=== PATIENT | female | born 1990 | race Caucasian/White ===

== ENCOUNTER 2017-11-11 08:23 | Inpatient (IN) | payer MEDICAID ==
[2017-11-11] MEDS ORDERED: OXYTOCIN 30 UNITS/LR 500 ML IV ×2 (09:30→22:30)
[2017-11-11] MEDS ORDERED: MISOPROSTOL 200 MCG TAB PR ×2 (09:30→22:30)
[2017-11-11] MEDS ORDERED: METHYLERGONOVINE 0.2 MG INJ IM ×2 (09:30→22:30)
[2017-11-11] MEDS ORDERED: CARBOPROST 250 MCG INJ IM ×2 (09:30→22:30)
[2017-11-11] MEDS ORDERED: CEFAZOLIN 2 GM/50 ML (PMX) 50 ML IV (09:30)
[2017-11-11 09:36] LABS: ADD MAN DIFF? NO
[2017-11-11 09:38] LABS: WHITE BLOOD COUNT 12.4 10^3/ul (4.8-10.8)
[2017-11-11 09:38] LABS: BASOPHIL # 0.1 10^3/ul (0.0-0.1); BASOPHILS % 0.5 % (0.0-2.0); EOSINOPHILS # 0.1 10^3/ul (0.0-0.5); EOSINOPHILS % 0.8 % (0.0-7.0); HEMOGLOBIN 12.5 g/dl (12.0-16.0); LYMPHOCYTES # 3.8 10^3/ul (0.8-2.9); LYMPHOCYTES % 30.8 % (15.0-51.0); MEAN CORPUSCULAR HEMOGLOBIN 28.7 pg (29.0-33.0); MEAN CORPUSCULAR HGB CONC 32.9 g/dl (32.0-37.0); MEAN CORPUSCULAR VOLUME 87.4 fl (82.0-101.0); MEAN PLATELET VOLUME 10.4 fl (7.4-10.4); MONOCYTE # 1.1 10^3/ul (0.3-0.9); NEUTROPHIL # 6.8 10^3/ul (1.6-7.5); NEUTROPHILS % 54.9 % (39.0-77.0); PLATELET COUNT 264 10^3/UL (140-415); RED BLOOD COUNT 4.35 10^6/ul (4.20-5.40); RED CELL DISTRIBUTION WIDTH 15.8 % (11.5-14.5)
[2017-11-11] MEDS: LACTATED RINGER'S 1,000 ML IV ×2 (10:05→22:11)
[2017-11-11 10:10] LABS: INR 0.97; PARTIAL THROMBOPLASTIN TIME 27.3 Sec (25.0-35.0)
[2017-11-11] MEDS: ONDANSETRON 4 MG INJ IV (15:17)
[2017-11-11] MEDS: CITRIC ACID/SODIUM CITRATE 15 ML CUP PO (15:18)
[2017-11-11] MEDS ORDERED: OXYTOCIN 10 UNIT INJ (15:45)
[2017-11-11] MEDS ORDERED: FENTAnyl 50 MCG/ML VIAL (15:45)
[2017-11-11] MEDS ORDERED: BUPIVACAINE 0.75%/DEXT (SPINAL) 2 ML INJ (15:45)
[2017-11-11] MEDS ORDERED: METOCLOPRAMIDE 10 MG INJ (15:45)
[2017-11-11] MEDS ORDERED: morphine SULFATE/PF (10 MG/10 ML) INJ (15:45)
[2017-11-11] MEDS ORDERED: PHENYLephrine (100 MCG/ML) 5ML SYG (15:45)
[2017-11-11] MEDS: OXYTOCIN 30 UNITS/LR 500 ML IV ×2 (17:00→20:42)
[2017-11-11] MEDS: KETOROLAC 30 MG INJ IV (20:39)
[2017-11-11] MEDS ORDERED: NALBUPHINE HCL (10 MG/1 ML) INJ IV (22:00)
[2017-11-11] MEDS ORDERED: TRIMETHOBENZAMIDE 100 MG/ML VIAL IM (22:00)
[2017-11-11] MEDS ORDERED: ONDANSETRON 4 MG INJ IV (22:00)
[2017-11-11] MEDS ORDERED: NALOXONE (0.4 MG/ML) INJ IV (22:00)
[2017-11-11] MEDS ORDERED: DIPHENHYDRAMINE 50 MG INJ IV (22:00)
[2017-11-11] MEDS ORDERED: morphine 2 MG INJ IV (22:00)
[2017-11-11] MEDS ORDERED: NACL 0.9% 3 ML SYG IV (22:30)
[2017-11-11] MEDS ORDERED: NA PHOSPHATE/BIPHOS 133 ML ENEMA PR (22:30)
[2017-11-11 22:37] LABS: RAPID PLASMA REAGIN NONREACTIVE (NR)
[2017-11-12] MEDS: OXYTOCIN 30 UNITS/LR 500 ML IV (01:10)
[2017-11-12] MEDS: morphine 2 MG INJ IV (01:14)
[2017-11-12] MEDS: LACTATED RINGER'S 1,000 ML IV ×2 (06:11→12:32)
[2017-11-12 09:08] LABS: ADD MAN DIFF? NO
[2017-11-12 09:12] LABS: WHITE BLOOD COUNT 10.5 10^3/ul (4.8-10.8)
[2017-11-12 09:12] LABS: BASOPHILS % 0.3 % (0.0-2.0); EOSINOPHILS % 0.4 % (0.0-7.0); HEMATOCRIT 26.9 % (37.0-47.0); HEMOGLOBIN 8.9 g/dl (12.0-16.0); LYMPHOCYTES # 2.3 10^3/ul (0.8-2.9); LYMPHOCYTES % 22.1 % (15.0-51.0); MEAN CORPUSCULAR HEMOGLOBIN 29.6 pg (29.0-33.0); MEAN CORPUSCULAR HGB CONC 33.1 g/dl (32.0-37.0); MEAN CORPUSCULAR VOLUME 89.4 fl (82.0-101.0); MEAN PLATELET VOLUME 10.5 fl (7.4-10.4); MONOCYTE # 0.8 10^3/ul (0.3-0.9); MONOCYTES % 7.2 % (0.0-11.0); NEUTROPHIL # 7.2 10^3/ul (1.6-7.5); NEUTROPHILS % 68.7 % (39.0-77.0); PLATELET COUNT 178 10^3/UL (140-415); RED BLOOD COUNT 3.01 10^6/ul (4.20-5.40)
[2017-11-12] MEDS: FOLIC ACID 1 MG TAB PO (09:12)
[2017-11-12] MEDS: KETOROLAC 30 MG INJ IV (12:41)
[2017-11-12] MEDS: HYDROCODONE/APAP (5/325) TAB PO (16:23)
[2017-11-12] MEDS: IBUPROFEN 800 MG TAB PO (21:24)
[2017-11-13] MEDS: LANOLIN 7 GM TUBE TOP (03:19)
[2017-11-13] MEDS: HYDROCODONE/APAP (5/325) TAB PO ×2 (03:19→16:39)
[2017-11-13] MEDS: IBUPROFEN 800 MG TAB PO ×3 (05:37→22:33)
[2017-11-13] MEDS: FOLIC ACID 1 MG TAB PO (08:57)
[2017-11-14] MEDS: IBUPROFEN 800 MG TAB PO ×2 (06:23→13:44)
[2017-11-14] MEDS: HYDROCODONE/APAP (5/325) TAB PO (08:02)
[2017-11-14] MEDS: MEASLES,MUMPS,RUBELLA VACCINE INJ SC* (09:04)
[2017-11-14] MEDS: DIPHTH/TET/ACEL PERTUSS (ADULT) 0.5 ML VIAL IM* (09:04)
[2017-11-14] MEDS: FOLIC ACID 1 MG TAB PO (09:05)
== END 2017-11-14 16:30 | disposition home or self-care (01) | DRG 766 ==
LOC: L-D 08:23 → PP1 21:14
PROVIDERS: Obstetrics & Gynecology
PROC: 10D00Z1 Extraction of Products of Conception, Low, Open Approach (ICD-10-PCS; principal; 2017-11-11 15:30)
DX: O34.211 Maternal care for low transverse scar from previous cesarean delivery (principal); Z3A.39 39 weeks gestation of pregnancy; Z37.0 Single live birth
CPT/HCPCS: 85025; 85610; 85730; 86592; 86850; 86900; 86901; 99464

== ENCOUNTER 2017-11-20 05:15 | Emergency (ER) | payer MEDICAID ==
[2017-11-20] MEDS ORDERED: CEFTRIAXONE 1 GM/50 ML (PMX) 50 ML IVPB (06:00)
[2017-11-20 06:35] LABS: ADD MAN DIFF? NO
[2017-11-20] MEDS: SOD CHLORIDE 0.9% 1,000 ML IV (06:37)
[2017-11-20] MEDS: KETOROLAC 30 MG INJ IV (06:38)
[2017-11-20 06:43] LABS: BASOPHIL # 0.1 10^3/ul (0.0-0.1); BASOPHILS % 0.5 % (0.0-2.0); EOSINOPHILS # 0.3 10^3/ul (0.0-0.5); HEMATOCRIT 32.7 % (37.0-47.0); HEMOGLOBIN 10.6 g/dl (12.0-16.0); LYMPHOCYTES % 35.3 % (15.0-51.0); MEAN CORPUSCULAR HEMOGLOBIN 28.7 pg (29.0-33.0); MEAN CORPUSCULAR HGB CONC 32.4 g/dl (32.0-37.0); MEAN CORPUSCULAR VOLUME 88.6 fl (82.0-101.0); MONOCYTE # 1.2 10^3/ul (0.3-0.9); MONOCYTES % 10.8 % (0.0-11.0); NEUTROPHIL # 5.6 10^3/ul (1.6-7.5); NEUTROPHILS % 49.3 % (39.0-77.0); PLATELET COUNT 476 10^3/UL (140-415); RED BLOOD COUNT 3.69 10^6/ul (4.20-5.40); RED CELL DISTRIBUTION WIDTH 14.9 % (11.5-14.5)
[2017-11-20 06:43] LABS: WHITE BLOOD COUNT 11.4 10^3/ul (4.8-10.8)
[2017-11-20] MEDS: LIDOCAINE 1% (MDV) 10 ML INJ INJ (06:50)
[2017-11-20 07:04] LABS: INR 0.93; PARTIAL THROMBOPLASTIN TIME 33.4 Sec (25.0-35.0); PROTIME 12.5 Sec (11.9-14.9)
[2017-11-20 07:10] LABS: ALANINE AMINOTRANSFERASE 36 IU/L (13-69); ALBUMIN 3.5 g/dl (3.3-4.9); ALBUMIN/GLOBULIN RATIO 1.06; ALKALINE PHOSPHATASE 104 IU/L (42-121); AMYLASE 66 U/L (11-123); ANION GAP 15 (8-16); ASPARTATE AMINO TRANSFERASE 33 IU/L (15-46); BILIRUBIN,INDIRECT 0.3 mg/dl (0-1.1); BILIRUBIN,TOTAL 0.3 mg/dl (0.2-1.3); BLOOD UREA NITROGEN 13 mg/dl (7-20); CALCIUM 9.4 mg/dl (8.4-10.2); CARBON DIOXIDE 22 mmol/L (21-31); CHLORIDE 110 mmol/L (97-110); CREATININE 0.76 mg/dl (0.44-1.00); GLUCOSE 85 mg/dl (70-220); LIPASE 127 U/L (23-300); POTASSIUM 4.3 mmol/L (3.5-5.1); SODIUM 143 mmol/L (135-144); TOTAL PROTEIN 6.8 g/dl (6.1-8.1)
[2017-11-20] MEDS ORDERED: SOD CHLORIDE 0.9% 100 ML (07:17)
[2017-11-20] MEDS ORDERED: IOHEXOL 300MG/ML 150 ML BTL (07:17)
[2017-11-20 07:25] LABS: ADD UMIC YES; UR AMORPHOUS CRYSTAL FEW /HPF (NONE SEEN); UR ASCORBIC ACID NEGATIVE (NEGATIVE); UR BACTERIA FEW /HPF (NONE SEEN); UR BILIRUBIN (Dip) NEGATIVE (NEGATIVE); UR BLOOD (Dip) 3+ mg/dL (NEGATIVE); UR CLARITY SLIGHTLY CLOUDY (CLEAR); UR COLOR YELLOW (YELLOW); UR GLUCOSE (Dip) NEGATIVE (NEGATIVE); UR KETONES (Dip) NEGATIVE (NEGATIVE); UR LEUKOCYTE ESTERASE (Dip) 3+ Leu/ul (NEGATIVE); UR NITRITE (Dip) NEGATIVE (NEGATIVE); UR NONSQUAMOUS EPITHELIAL CELL 1 /HPF (NONE SEEN); UR RBC 22 /HPF (0-5); UR SPECIFIC GRAVITY (Dip) 1.003 (1.003-1.030); UR SQUAMOUS EPITHELIAL CELL FEW /HPF (FEW); UR TOTAL PROTEIN (Dip) NEGATIVE (NEGATIVE); UR UROBILINOGEN (Dip) NEGATIVE (NEGATIVE); UR WBC 100 /HPF (0-5)
[2017-11-20] MEDS: CEFTRIAXONE 1 GM/50 ML (PMX) 50 ML IVPB (07:46)
== END 2017-11-20 09:25 | disposition home or self-care (01) ==
LOC: E/R 05:15
DX: O90.0 Disruption of cesarean delivery wound (principal); R10.9 Unspecified abdominal pain
CPT/HCPCS: 12001; 74177; 80053; 81001; 82150; 83690; 85025; 85610; 85730; 87070; 87086; 96361; 96365; 96375; 99285-25